=== PATIENT | female | born 2000 | race Caucasian/White ===

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

== ENCOUNTER 2022-02-15 13:20 | Emergency (ER) | payer OTHER ==
[~2022-02-15 13:20] MED LIST: ZOFRAN ODT 4 MG4 MG SL
[2022-02-15] MEDS ORDERED: BACTRIM DS TAB1 EACH PO (15:28)
== END 2022-02-15 15:36 | disposition home or self-care (01) ==
LOC: ER1 13:20
DX: N89.8 Other specified noninflammatory disorders of vagina (principal)
CPT/HCPCS: 99282